=== PATIENT | male | born 1980 | race Caucasian/White ===

== ENCOUNTER 2018-03-27 20:41 | Emergency (ER) | payer OTHER ==
[~2018-03-27] VITALS: Ht 177.8 cm; Wt 93.0 kg
[~2018-03-27 20:41] MED LIST: KLONOPIN1 M1 PO; LITHIUM CARBON300 M4 PO; METHADONE HCL10 M1 PO; OLANZAPINE5 M2 PO
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
[2018-03-27 21:51] LABS: ABSOLUTE BASOPHIL COUNT 0 /CUMM (0.0-0.2); ABSOLUTE EOSINOPHIL COUNT 0.2 /CUMM (0.0-0.7); ABSOLUTE GRANULOCYTE CT 5.9 /CUMM (1.4-6.5); ABSOLUTE LYMPH COUNT 2.5 /CUMM (1.2-3.4); ABSOLUTE MONOCYTE COUNT 0.7 /CUMM (0.10-0.60); BASOPHIL % 0.4 % (0.0-2.0); EOSINOPHIL % 2.2 % (0-5); GRANULOCYTE % 63.3 % (42.2-75.2); MEAN CORPUSCULAR HGB 28.9 PG (27.0-31.0); MEAN PLATELET VOLUME 7.8 FL (7.4-10.4); PLATELET COUNT 323 /CUMM (130-400); RBC DISTRIBUTION WIDTH 13.3 % (11.5-14.5); RED BLOOD CELL CT 4.83 /CUMM (4.70-6.10); WHITE BLOOD CELL COUNT 9.3 /CUMM (4.8-10.8)
[2018-03-28 10:46] LABS: LITHIUM < 0.2 mmol/L (0.6-1.2)
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
[2018-03-29 10:05] VITALS: BP 146/88
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
--- NOTE | 2018-03-29 13:17 | ED PSYCHIATRIST/APRN CONSULT ---
Psychiatrist/DOCUMENT IMAGE TECHNICIAN ED Consult Assessment and Plan: ED Psychiatry consult I re-evaluated Mr. Smith this morning, accompanied by Christine Jarrett LCSW. Briefly, he is a 37 y/o unemployed man with history of antisocial behavior, substance abuse disorders (on methadone maintenance), and unspecified mood disorders, who presented to [facility] emergency Department of his own accord late in the evening on March 27. Upon his arrival, his urine drug screen was positive for cocaine, methadone (Rx'd by MUNIRA Ibarra), and benzodiazepines. He had a chief complaint that he was hearing voices and that he was thinking about killing himself, and he was maintained in the emergency department for further evaluation the following day. He reports that [facility] in [place], approximately one week prior, at that time he returned to his home in the [place] to live with his girlfriend. He reports having an argument with his girlfriend, Manuela, which he says was due to his speaking with another female acquaintance. Due to the argument, he left the home, and began using substances, including snorting cocaine. This is consistent with his long history of substance use disorders. He notes that at that time he was essentially homeless and ultimately presented to the hospital as noted above. Yesterday, the patient continued to present in fair behavioral control. However , due to the fact that the patient presented of his own accord, rather than on a holding paper such as a PEER, and the treatment team desired to observe the patient further given the serious nature of his chief complaint, he was placed on a physician's emergency certificate, with intention for hospitalization should the symptoms and risk remain. He was given his home medication of clonazepam as well as Zyprexa due to his description of hearing voices. He did not require any emergency medications for agitation or violent behavior. This morning, after an uneventful overnight, the patient asked the transfer and pumphouse operator to leave the hospital, stating that he does not want to be hospitalized in an inpatient psychiatric unit. This M.D. interviewed the patient [id number], accompanied by crisis social insurance specialist Christine Jarrett. The patient was in good behavioral control throughout this interview. He reports that he presented to the hospital following using cocaine for 2 days prior, as well as status post the above noted argument with his girlfriend, and therefore, did not have a place to stay. "I knew that if I showed up to the hospital and said that I was suicidal that they would have to keep me." "I actually never had any intent on harming myself, I made it all up because I needed a place to stay." "I also don't hear voices, I said that also knowing that that would make you have to keep me." He reports that he has no current thoughts about harming himself, no thoughts about harming others, including his girlfriend, and that he has no access to firearms at his home or elsewhere. "I'm a convicted felon, I can't go anywhere near guns." Darnell tells me that his plan, after lengthy discussion with his girlfriend Manuela, is to return home to his home in the [place] area. He reports that he has follow-up psychiatric treatment through [facility] "sometime in a few weeks". He was able to describe to me in a factual and logical manner steps from leaving [facility], obtaining money through why her transfer from his girlfriend, and taking the train from [place] all the way to [place], where he will then get transportation back to his home. I asked him why he was not interested in inpatient psychiatric hospitalization, and he stated that he would rather be home with his girlfriend "now that we've made up ", as well as to "go to an AA meeting with a friend [of his]", who he considers to be a sponsor of some sort. We described the importance of obtaining immediate follow-up treatment, and provided him with numerous resources near to where he lives in [facility]. Mental status exam: Darnell is an overweight, moderately groomed man of apparent stated age, with good eye contact, mildly hypermotoric, speech is mildly increased in amount, increased in volume, mildly pressured but fully interruptible. Mood was "I feel fine today ", affect is slightly expansive, non -labile. Thought process is logical and linear, content is without any suicidal ideation, intent, or plan. Denies any homicidal ideation. He denies any perceptual disturbances. His cognition is noted to be alert and oriented to person, place, and date, his insight and judgment is deemed to be fair. All laboratory values and studies were reviewed. Collateral was obtained from the patient's girlfriend, Kayleigh. Please see Christine Jarrett FACING SLITTER collateral note for details. Briefly, this collateral demonstrates that the patient's girlfriend is accepting of this patient back in her home, she does not feel her safety is threatened by this individual, and she has the ability to contact emergency medical services, should these be needed in the near future. Assessment and recommendations: This is a 37-year-old man recently released [facility] who presented to the [facility] emergency department intoxicated with stimulants, threatening to harm himself. It is now apparent that this threat was a clear episode of malingering whereby the patient was feigning psychiatric symptoms in order to secure a bed indoors for the evening, in the context of transient homelessness due to an argument with his girlfriend. It is likely that some of the pressured behavior that the patient demonstrated and poor decision making is a consequence of his cocaine and other substance use. While this is clearly a maladaptive way to cope with his psychosocial difficulties, it also demonstrates the patient is able to secure services, and the transient nature of his mental status changes is fully explicable by his substance abuse, most notably cocaine. Given that the patient came to the hospital of his own accord, that the safety threat appeared to be fully malingered, and that he no longer demonstrates any thoughts of harming himself or others, nor does he appear gravely disabled, he will be discharged from the emergency department. His plan will be returning to his home in the [facility] with his girlfriend. He currently reports having follow-up at [facility], however, he has been given a number of resources by a crisis social insurance specialist if he needs to obtain services sooner. He was also instructed in the use of 211 to obtain further services for either psychiatric treatment or housing difficulties. He was again instructed to return to the emergency department or call 911 in the case of any psychiatric or medical emergency in the near future. Diagnoses: Malingering Stimulant use disorder, severe Opiate use disorder, severe, on methadone maintenance Sedative hypnotic use disorder, severe Rule out antisocial personality disorder Per chart: history of unspecified bipolar disorder
[2018-04-01] MEDS ORDERED: CLONAZEPAM1 M2 PO (11:07)
[2018-04-01] MEDS ORDERED: KLONOPIN1 M1 PO (11:18)
== END 2018-03-29 13:55 ==
LOC: ERH 20:41
PROVIDERS: Pediatrics
DX: F31.9 Bipolar disorder, unspecified (principal); F14.10 Cocaine abuse, uncomplicated; F11.10 Opioid abuse, uncomplicated
CPT/HCPCS: 80307; G0463; G0480